=== PATIENT | female | born 1980 | race African-American/Black ===

== ENCOUNTER 2017-01-22 19:39 | Emergency (ER) | payer OTHER ==
--- NOTE | ~2017-01-22 | CT4 ---
[facility] A Service of [facility] / [facility] RADIOLOGY TEXT RESULTS PATIENT: HEBER GOODE LOCATION: [facility] : 80 UNIT #: [id number] AGE: [address]: Jurgen Bourne MD SEX: F ORDER DR: [id number] [facility] [address] [place], [place] [address] [id number] E MR#: [id number] Acc #: [id number] NAME: HEBER GOODE. : 1980 SEX: F STUDY DATE/TIME: 01/22/2017 22:17 UNIT: [facility] ROOM: STUDY DESCRIPTION: CT Abd and Pelv Wo Cont Attending Physician: Jurgen Bourne M.D. Ordering Physician: Jurgen Bourne M.D. Primary Care Physician: Kathy Arroyo M.D. MEDICAL IMAGING REPORT This report is preliminary unless electronic signature is present EXAM CT abdomen and pelvis without contrast, 01/22/2017. HISTORY Right and left lower back pain for 2 days. History of kidney stones. COMPARISON CT abdomen and pelvis with contrast, 07/31/2015. PROCEDURE 3-mm noncontrasted axial images through the abdomen and pelvis. Enteric contrast was not administered. Sagittal and coronal reformatted images were obtained. This CT exam was performed with one or more of the following radiation dose reduction techniques: automatic exposure control, adjustment of mA and/or kV according to patient size, and iterative reconstruction. FINDINGS Gastric band device is in place. It appears similar in orientation to the 07/31/2015 exam. Imaged lung bases are clear. The liver, gallbladder, spleen, pancreas, adrenals and kidneys have a normal noncontrasted appearance. No renal or ureteral calculus, hydronephrosis, hydroureter, or perinephric inflammation is seen. Limited evaluation of bowel due to lack of enteric contrast, but no focal bowel inflammation is appreciated. PELVIS: The appendix is normal. Intrauterine device in place. Small phlebolith is demonstrated in the pelvis to the left of midline. No free air or free fluid is evident. [facility] A Service of [facility] RADIOLOGY TEXT RESULTS PATIENT: HEBER GOODE LOCATION: [facility] #: [id number] : [birth year] UNIT #: [id number] AGE: [address]: Jurgen Bourne MD SEX: F ORDER DR: No acute osseous abnormalities identified. IMPRESSION 1. No acute findings in the abdomen or pelvis to explain the patient's pain. 2. No urinary tract stone or hydronephrosis. 3. Intrauterine device in place. Gastric band device in place. Dictated by... Hali Garcia M.D. THIS IS AN ELECTRONICALLY VERIFIED REPORT Hali Garcia M.D. at 01/23/2017 9:42 PM Rachel TD: 01/23/2017 15:18 JOB #: [id number] MEDICAL IMAGING REPORT Page 1 of 1 COPY
[~2017-01-22 19:39] MED LIST: BACTRIM DS TABL1 TAB PO; MUCINEX OTC; PHENTERMINE
[2017-01-22 22:12] LABS: URINE SOURCE CLEAN CATCH
[2017-01-22 22:16] LABS: URINE APPEARANCE CLOUDY; URINE BILIRUBIN NEG (NEG); URINE BLOOD 3+ (NEG); URINE COLOR YELLOW; URINE GLUCOSE NEG (NEG); URINE KETONE NEG (NEG); URINE LEUKOCYTE ESTERASE TRACE (NEG); URINE NITRATE NEG (NEG); URINE PH 5.5 (5-8); URINE PROTEIN TRACE (NEG); URINE SPECIFIC GRAVITY 1.024 (1.003-1.035)
[2017-01-22 22:19] LABS: CULTURE INDICATED? YES; URINE BACTERIA AUWI 1+ (NEGATIVE); URINE SQUAMOUS EPITHELIAL CELL OCC /[HPF]
[2017-01-22 22:25] LABS: BASOPHIL% 0.7 % (0-2.5); EOSINOPHIL# 0.1 X10e3 (0-0.7); EOSINOPHIL% 2.2 % (0.0-7.0); HEMATOCRIT 39.5 % (35.0-45.0); HEMOGLOBIN 13.3 gm/dL (12.0-16.0); LYMPHOCYTE# 2.2 X10e3 (1.0-3.5); LYMPHOCYTE% 47.3 % (17.0-45.0); MEAN CELL VOLUME 89.6 FL (83-96); MEAN CORPUSCULAR HEMOGLOBIN 30.3 PG (28-34); MEAN CORPUSCULAR HGB CONC 33.8 g/dL (30-36); MEAN PLATELET VOLUME 7.9 FL (6.5-11.5); MONOCYTE# 0.3 X10e3 (0-1.0); MONOCYTE% 7.3 % (3.0-12.0); NEUTROPHIL% 42.5 % (40-75); PLATELET COUNT 191 X10e3 (140-420); WHITE BLOOD COUNT 4.7 X10e3 (4.0-10.5)
[2017-01-22 22:27] LABS: DIFF IND NO
[2017-01-22 22:43] LABS: URBCS1 AUWI 25-50 /[HPF] (0-2); URINE MUCUS PRESENT; URINE YEAST PRESENT
[2017-01-22 22:46] LABS: BUN/CREATININE RATIO 11.25; CALCIUM SERUM 9.2 mg/dL (8.4-10.2); CREATININE SERUM 0.8 mg/dL (0.6-1.4); POTASSIUM 3.7 mmol/L (3.5-5.1)
== END 2017-01-22 23:30 | disposition home or self-care (01) ==
LOC: CED 19:39
PROVIDERS: Emergency Medicine
DX: B37.9 Candidiasis, unspecified (principal); R31.9 Hematuria, unspecified; M54.5 Low back pain; Z88.0 Allergy status to penicillin
CPT/HCPCS: 36415; 74176; 80048; 81003; 84703; 85025; 87086; 96374; 96375; 99284; J1885; J2270; J2405